=== PATIENT | male | born 1960 | race Caucasian/White ===

== ENCOUNTER 2024-03-14 12:29 | Emergency (ER) | payer OTHER ==
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
[2024-03-14] MEDS: HYDROmorphone 1 MG/ML 1 ML SYRINGE IVP STA ×2 (13:09→14:32)
[2024-03-14] MEDS: ORPHENADRINE 30 MG/ML 2 ML VIAL IVP STA (13:11)
[2024-03-14] MEDS: PANTOPRAZOLE 40 MG/10 ML VIAL IVP STA (13:12)
[2024-03-14] MEDS: SODIUM CHLORIDE 0.9% 1,000 ML IV STA (13:13)
[2024-03-14 13:41] LABS: Basophils # (A) 0.1 k/uL (0-0.2); Basophils % (A) 0 %; Eosinophils # (A) 0.2 k/uL (0-0.7); Eosinophils % (A) 2 %; HCT 49.1 % (39.0-53.0); HGB 16.1 gm/dL (13.0-17.5); Lymphocytes # (A) 1.4 k/uL (1.0-4.8); Lymphocytes % (A) 10 %; MCH 31.1 pg (25.0-35.0); MCHC 32.8 g/dL (31.0-37.0); MCV 94.9 fL (80.0-100.0); Mean Platelet Volume 8.4; Monocytes # (A) 0.9 k/uL (0-1.0); Monocytes % (A) 6 %; Neutrophils # (A) 11.4 k/uL (1.3-7.7); Neutrophils % (A) 81 %; Platelet Count 433 k/uL (150-450); RBC 5.18 m/uL (4.30-5.90); WBC 14.2 k/uL (3.8-10.6)
[2024-03-14 13:45] LABS: ALT 29 U/L (4-49); AST 24 U/L (17-59); African American GFR (CKD) >90 (>60 ml/min/1.73 sqM); Albumin 4.2 g/dL (3.5-5.0); Alkaline Phosphatase 106 U/L (38-126); Amylase 61 U/L (30-110); Anion Gap 9 mmol/L; Blood Urea Nitrogen 16 mg/dL (9-20); Calcium 10.2 mg/dL (8.4-10.2); Carbon Dioxide 23 mmol/L (22-30); Chloride 105 mmol/L (98-107); Glucose 120 mg/dL (74-99); Lipase 85 U/L (23-300); Non-African American GFR(CKD) >90 (>60 ml/min/1.73 sqM); Potassium 4.2 mmol/L (3.5-5.1); Sodium 137 mmol/L (137-145); Total Bilirubin 0.7 mg/dL (0.2-1.3); Total Protein 7.1 g/dL (6.3-8.2)
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
[2024-03-14 15:02] LABS: Amorphous Sediment,Urine Rare /hpf; Appearance,Urine Cloudy (Clear); Bilirubin,Urine Negative (Negative); Blood,Urine Negative (Negative); Color,Urine Colorless; Glucose,Urine (UA) Negative (Negative); Ketones,Urine Negative (Negative); Leukocyte Esterase,Urine Negative (Negative); Mucus,Urine Rare /hpf; Nitrite,Urine Negative (Negative); Protein,Urine Negative (Negative); RBC,Urine <1 /hpf (0-5); Specific Gravity,Urine 1.019 (1.001-1.035); Urobilinogen,Urine <2.0 mg/dL (<2.0); WBC,Urine 1 /hpf (0-5)
[2024-03-14 15:43] VITALS: RESP 18
--- NOTE | 2024-03-14 16:24 | US ---
EXAMINATION TYPE: US gallbladder DATE OF EXAM: 03/14/2024 COMPARISON: CT CLINICAL INDICATION: Male, 63 years old with history of Epigastric pain, abnormal CT; Epigastric/RUQ pain. Abnormal CT TECHNIQUE: Multiple sonographic images of the right upper quadrant are obtained. FINDINGS: EXAM MEASUREMENTS: Liver Length: 14.8 cm Gallbladder Wall: 0.5 cm Right Kidney: 10.8 x 5.7 x 5.0 cm [employer] NOTES:Technical limitations due to large amount of overlying bowel gas Pancreas: Obscured by bowel gas Liver: only seen intercostally, appears wnl as visualized Gallbladder: only seen intercostally. stone = 0.9cm. possible sludge Evidence for sonographic Tom's sign: no CBD: Obscured by overlying bowel gas Right Kidney: no evidence of hydronephrosis , abnormal appearance on CT not well appreciated. IMPRESSION: 1. Gallbladder wall appears within normal limits for thickness. Patient body habitus limits evaluati on slightly. 2. Cholelithiasis with possible sludge.
[2024-03-14] MEDS: ONDANSETRON 4 MG ODT STARTER PACK 2 TAB BTL PO STA (16:55)
[2024-03-14] MEDS: ACET/COD 300 MG/30 MG STARTER PACK 6 TAB BTL PO STA (16:55)
[2024-03-14 17:01] VITALS: BP 110/77; PULSE 67; TEMP 98.1
== END 2024-03-14 17:01 | disposition home or self-care (01) ==
LOC: EC 12:29
DX: K80.70 Calculus of gallbladder and bile duct without cholecystitis without obstruction (principal); Z88.6 Allergy status to analgesic agent
CPT/HCPCS: 36415; 93005; 80053; 82150; 83605; 83690; 84484; 85025; 81001; 76705; 71260; 74177; 99284; 96374; 96375 ×2; 96376; 96361; J2360; J1170; S0119; Q9967; J2470